=== PATIENT | female | born 1980 | race Hispanic/Latino ===

== ENCOUNTER 2022-08-31 09:56 | Outpatient (CLI) | payer SELFPAY ==
[2022-08-31 12:48] LABS: BHCG - Serum Negative (NEGATIVE); Pregs Control Background? CLEAR/WHITE (CLR/WHITE); Pregs Control Bar Appear? YES (CONTROL BAR)
== END 2022-08-31 09:57 | disposition home or self-care (01) ==
LOC: LABBT 09:56
PROVIDERS: ATTEND Orthopaedic Surgery
DX: Z01.812 Encounter for preprocedural laboratory examination (principal)
CPT/HCPCS: 84703

== ENCOUNTER 2022-09-01 10:45 | Day surgery (SDC) | payer SELFPAY ==
[2022-08-31 11:32] VITALS: BMI 27.4
[2022-09-01] MEDS ORDERED: HYDROmorphone 2 MG/ML VIAL ONE (11:33)
[2022-09-01] MEDS ORDERED: Promethazine HCl 25 MG/ML VIAL ONE (11:33)
[2022-09-01] MEDS ORDERED: Midazolam HCl 2 mg/2 ml Vial ONE (11:50)
[2022-09-01] MEDS ORDERED: Bupivacaine PF 0.5% 30 ML VIAL ONE (11:50)
[2022-09-01] MEDS ORDERED: FENTANYL 50 MCG/ML 1 ML VIAL ONE (11:50)
[2022-09-01] MEDS ORDERED: CEFAZOLIN 2 GM VIAL ONE (12:10)
[2022-09-01] MEDS ORDERED: Sodium Chloride 0.9% 100 ML ONE (12:10)
[2022-09-01] MEDS ORDERED: Bupivacaine HCl 0.5%/Epinephrine 1:200,000/PF 30 ml Vial ONE (12:30)
[2022-09-01] MEDS ORDERED: Ondansetron PF 4 MG/2 ML Vial ONE (12:30)
[2022-09-01] MEDS ORDERED: Dexamethasone 20 MG/5 ML VIAL ONE (12:30)
[2022-09-01] MEDS ORDERED: PROPOFOL 200 MG/20 ML VIAL ONE (12:30)
[2022-09-01] MEDS ORDERED: Lidocaine 1% PF 5 ML VIAL ONE (12:30)
== END 2022-09-01 15:48 | disposition home or self-care (01) ==
LOC: SDC 10:45
PROVIDERS: ATTEND Orthopaedic Surgery
PROC: 0PSH04Z Reposition Right Radius with Internal Fixation Device, Open Approach (ICD-10-PCS; principal; 2022-09-01)
DX: S52.531A Colles' fracture of right radius, initial encounter for closed fracture (principal); S52.611A Displaced fracture of right ulna styloid process, initial encounter for closed fracture; Z79.899 Other long term (current) drug therapy; W19.XXXA Unspecified fall, initial encounter; Y93.K1 Activity, walking an animal
CPT/HCPCS: J1100; J1170; J2250; J2405; J2550; J2704; J3010; J3490; S0020